=== PATIENT | male | born 1985 | race Caucasian/White ===

== ENCOUNTER 2024-06-05 09:04 | Outpatient (CLI) | payer BC | END 2024-06-05 09:05 | disposition home or self-care (01) | LOC: MRI 09:04 | PROVIDERS: ATTEND Physician Assistant | DX: H90.42 Sensorineural hearing loss, unilateral, left ear, with unrestricted hearing on the contralateral side (principal); J32.0 Chronic maxillary sinusitis | CPT/HCPCS: 70553; 76376 ==